=== PATIENT | male | born 1980 | race Two or more races ===

== ENCOUNTER 2024-06-19 09:06 | Inpatient (IN) | payer MEDICAID ==
[~2024-06-19] VITALS: Ht 160 cm; Wt 48.1 kg
[2024-06-19] MEDS: KETOROLAC TROMETHAMINE 15 MG/ML VIAL IV ONE (09:50)
[2024-06-19] MEDS ORDERED: KETOROLAC TROMETHAMINE 15 MG/ML VIAL ONE (09:50)
[2024-06-19] MEDS: IV NS 0.9% 1,000 ML BAG IV ONE (09:50)
[2024-06-19] MEDS: PIPERACILLIN /TAZOBACTAM 3.375 G in IV D5W 50 ML IV ONE (09:50)
[2024-06-19 10:05] LABS: CALCIUM, SERUM 8.9 mg/dL (8.5-10.1); POTASSIUM 3.2 mmol/L (3.5-5.1)
[2024-06-19 10:08] LABS: BASOPHILS % (AUTO) 0.3 % (0.0-2.0); EOSINOPHILS % (AUTO) 0.4 % (0.0-6.0); HEMATOCRIT 37 % (39-51); HEMOGLOBIN 12.6 g/dL (13.5-17.5); LYMPHOCYTES # (AUTO) 0.6 K/uL (0.8-4.8); LYMPHOCYTES % (AUTO) 9.5 % (20.0-44.0); MEAN CORPUSCULAR HEMOGLOBIN 29 PG (26.0-33.0); MEAN CORPUSCULAR HGB CONC 34 g/dl (31.0-36.0); MEAN CORPUSCULAR VOLUME 87 fL (80-96); MONOCYTES # (AUTO) 0.5 K/uL (0.1-1.30); MONOCYTES % (AUTO) 7.2 % (2.0-12.0); NEUTROPHILS # (AUTO) 5.4 K/uL (1.8-8.9); NEUTROPHILS % (AUTO) 82.6 % (43.0-81.0); PLATELET COUNT (AUTO) 254 K/uL (150-450); RED BLOOD CELL COUNT(AUTO) 4.29 MIL/uL (4.5-6.0); RED CELL DISTRIBUTION WIDTH 12.6 % (11.5-15.0); WHITE BLOOD COUNT (AUTO) 6.5 K/uL (4.3-11.0)
[2024-06-19 10:11] LABS: ALBUMIN 2.9 g/dL (3.4-5.0); BILIRUBIN,DIRECT 0.1 mg/dL (0.0-0.2); BILIRUBIN,TOTAL 0.3 mg/dL (0.2-1.0); TOTAL PROTEIN, SERUM 7.9 g/dL (6.4-8.2)
[2024-06-19] MEDS: VANCOMYCIN 1 GM in IV D5W 250 ML IV ONE (10:20)
[2024-06-19 10:32] LABS: INR 1.12 (0.91-1.10); PARTIAL THROMBOPLASTIN TIME 31.2 SEC (24.3-34.3); PROTHROMBIN TIME 11.8 SECS (9.2-11.1)
[2024-06-19] MEDS ORDERED: MAG HYDROX/AL HYDROX/SIMETH 30 ML UDC PO PRN (11:30)
[2024-06-19] MEDS ORDERED: Z GUARD REMEDY 4 OZ OINT TP PRN (11:30)
[2024-06-19] MEDS ORDERED: ONDANSETRON HCL/PF 4 MG/2 ML VIAL IVP PRN (11:30)
[2024-06-19] MEDS ORDERED: MAGNESIUM HYDROXIDE 30 ML UDC PO PRN (11:30)
[2024-06-19] MEDS ORDERED: PIPERACILLIN /TAZOBACTAM 3.375 G in IV D5W 50 ML IV SCH (13:00)
[2024-06-19] MEDS: PIPERACILLIN /TAZOBACTAM 3.375 G in IV D5W 100 ML IV SCH (14:52)
[2024-06-19] MEDS: ACETAMINOPHEN 325 MG TABLET PO PRN (15:11)
[2024-06-19 16:00] VITALS: BP 99/76; TEMP 98.6; O2SAT 98
[2024-06-19] MEDS: POTASSIUM CHLORIDE 20 MEQ POWDER PACKET PO ONE (18:34)
[2024-06-19] MEDS: HYDROCODONE/APAP 5/325MG TABLET PO PRN (19:32)
[2024-06-19 20:00] VITALS: BP 119/64; TEMP 99.2; O2SAT 98
[2024-06-19] MEDS: VANCOMYCIN 1 GM in IV D5W 250ml IV SCH (20:22)
[2024-06-20] VITALS: BP 117/72; TEMP 99; O2SAT 99
[2024-06-20 06:59] LABS: BASOPHILS % (AUTO) 0.2 % (0.0-2.0); EOSINOPHILS # (AUTO) 0.1 K/uL (0.0-0.7); HEMATOCRIT 34 % (39-51); HEMOGLOBIN 11.6 g/dL (13.5-17.5); LYMPHOCYTES # (AUTO) 0.9 K/uL (0.8-4.8); LYMPHOCYTES % (AUTO) 15.2 % (20.0-44.0); MEAN CORPUSCULAR HEMOGLOBIN 30 PG (26.0-33.0); MEAN CORPUSCULAR HGB CONC 34 g/dl (31.0-36.0); MEAN CORPUSCULAR VOLUME 88 fL (80-96); MONOCYTES # (AUTO) 0.6 K/uL (0.1-1.30); MONOCYTES % (AUTO) 10.6 % (2.0-12.0); NEUTROPHILS # (AUTO) 4.1 K/uL (1.8-8.9); PLATELET COUNT (AUTO) 257 K/uL (150-450); RED BLOOD CELL COUNT(AUTO) 3.91 MIL/uL (4.5-6.0); RED CELL DISTRIBUTION WIDTH 12.7 % (11.5-15.0); WHITE BLOOD COUNT (AUTO) 5.6 K/uL (4.3-11.0)
[2024-06-20 07:23] LABS: CALCIUM, SERUM 8.6 mg/dL (8.5-10.1); MAGNESIUM 2.2 mg/dL (1.8-2.4); PHOSPHORUS 3.6 mg/dL (2.5-4.9); POTASSIUM 3.9 mmol/L (3.5-5.1)
[2024-06-20 08:00] VITALS: BP 112/71; TEMP 98.6; O2SAT 99
[2024-06-20] MEDS ORDERED: IOHEXOL-300 100 ML VIAL IV ONE (12:35)
[2024-06-20] MEDS: IV NS 0.9% 1,000 ML IV SCH (13:06)
[2024-06-20 16:00] VITALS: BP 132/82; TEMP 98.2; O2SAT 98
[2024-06-21] VITALS: BP 116/77; TEMP 98.7; O2SAT 100
[2024-06-21 06:32] LABS: BASOPHILS % (AUTO) 0.1 % (0.0-2.0); EOSINOPHILS % (AUTO) 0.9 % (0.0-6.0); HEMATOCRIT 34 % (39-51); HEMOGLOBIN 11.1 g/dL (13.5-17.5); LYMPHOCYTES # (AUTO) 0.7 K/uL (0.8-4.8); LYMPHOCYTES % (AUTO) 15.7 % (20.0-44.0); MEAN CORPUSCULAR HEMOGLOBIN 29 PG (26.0-33.0); MEAN CORPUSCULAR HGB CONC 33 g/dl (31.0-36.0); MEAN CORPUSCULAR VOLUME 88 fL (80-96); MONOCYTES # (AUTO) 0.6 K/uL (0.1-1.30); MONOCYTES % (AUTO) 12.3 % (2.0-12.0); NEUTROPHILS # (AUTO) 3.3 K/uL (1.8-8.9); PLATELET COUNT (AUTO) 281 K/uL (150-450); RED BLOOD CELL COUNT(AUTO) 3.83 MIL/uL (4.5-6.0); RED CELL DISTRIBUTION WIDTH 12.5 % (11.5-15.0); WHITE BLOOD COUNT (AUTO) 4.6 K/uL (4.3-11.0)
[2024-06-21 07:28] LABS: CALCIUM, SERUM 8.6 mg/dL (8.5-10.1); CREATININE 0.9 mg/dL (0.6-1.3); POTASSIUM 3.7 mmol/L (3.5-5.1)
[2024-06-21 08:00] VITALS: BP 115/59; TEMP 97.3; O2SAT 100
[2024-06-21] MEDS: IV NS 0.9% 1,000 ML IV PRN (12:56)
[2024-06-21] MEDS: MORPHINE SULFATE INJ 2 MG/ML DISP.SYRIN IV ONE ×2 (14:38→15:16)
[2024-06-21] MEDS: LIDOCAINE 1%-EPI 1:100,000 20 ML VIAL TP ONE (15:16)
[2024-06-21 16:00] VITALS: BP 126/74; TEMP 97.3; O2SAT 100
[2024-06-21] MEDS: ARGININE/GLUTAMINE/CALCIUM BMB 1 EACH POWD.PACK PO SCH (17:10)
[2024-06-22 04:53] VITALS: BP 105/70; TEMP 98.4; O2SAT 100
[2024-06-22] MEDS: DAKINS QUARTER STRENGTH (0.125%) 480 ML BOTTLE TOP SCH (08:21)
[2024-06-22 08:53] VITALS: BP 118/77; TEMP 98.7; O2SAT 100
[2024-06-22 08:54] LABS: BASOPHILS % (AUTO) 0.2 % (0.0-2.0); EOSINOPHILS % (AUTO) 0.9 % (0.0-6.0); HEMATOCRIT 35 % (39-51); HEMOGLOBIN 11.5 g/dL (13.5-17.5); LYMPHOCYTES # (AUTO) 0.6 K/uL (0.8-4.8); LYMPHOCYTES % (AUTO) 16.7 % (20.0-44.0); MEAN CORPUSCULAR HEMOGLOBIN 29 PG (26.0-33.0); MEAN CORPUSCULAR HGB CONC 33 g/dl (31.0-36.0); MEAN CORPUSCULAR VOLUME 87 fL (80-96); MONOCYTES # (AUTO) 0.3 K/uL (0.1-1.30); MONOCYTES % (AUTO) 7.3 % (2.0-12.0); NEUTROPHILS # (AUTO) 2.6 K/uL (1.8-8.9); NEUTROPHILS % (AUTO) 74.9 % (43.0-81.0); PLATELET COUNT (AUTO) 317 K/uL (150-450); RED BLOOD CELL COUNT(AUTO) 4.02 MIL/uL (4.5-6.0); RED CELL DISTRIBUTION WIDTH 12.6 % (11.5-15.0); WHITE BLOOD COUNT (AUTO) 3.5 K/uL (4.3-11.0)
[2024-06-22 09:07] LABS: CALCIUM, SERUM 8.5 mg/dL (8.5-10.1); POTASSIUM 3.4 mmol/L (3.5-5.1)
[2024-06-22] MEDS ORDERED: CLIN300C12 PO (11:14)
[2024-06-22] MEDS ORDERED: HYDR-3972 PO (11:14)
[2024-06-22] MEDS: MORPHINE SULFATE INJ 2 MG/ML DISP.SYRIN IV PRN (11:39)
[2024-06-22 14:30] LABS: HIV-1 p24 ANTIGEN NON REACTIVE (NONREACTIVE); HIV-1/2 ANTIBODY REACTIVE (NONREACTIVE)
[2024-06-22] MEDS ORDERED: VANCOMYCIN HCL 1.25 GM in IV D5W 250 ML IV SCH (20:00)
== END 2024-06-22 16:12 | disposition home or self-care (01) | DRG 383 ==
LOC: ER 09:12 → MEDSG1 11:09
PROC: 0H9HXZZ Drainage of Right Upper Leg Skin, External Approach (ICD-10-PCS; principal; 2024-06-21)
DX: L03.115 Cellulitis of right lower limb (principal); D64.9 Anemia, unspecified; E87.6 Hypokalemia; F12.91 Cannabis use, unspecified, in remission; F17.200 Nicotine dependence, unspecified, uncomplicated; L02.415 Cutaneous abscess of right lower limb
CPT/HCPCS: 36415; 73701-TC; 80048-TC; 80076-TC; 80202-TC; 83690-TC; 83735-TC; 84100-TC; 85025-TC; 85730-TC; 86850-TC; 87040-TC; 87536; 87806; A4223; A6253; A6403; A6407; G0378; J1885; J2270; J2543; J3370; J3490; J7030; J7050; J7060; Q9967

== ENCOUNTER 2024-06-24 12:15 | Emergency (ER) | payer MEDICAID ==
[~2024-06-24] VITALS: Ht 160 cm; Wt 54.4 kg
[~2024-06-24 12:15] MED LIST: CLIN300C12 PO; HYDR-3972 PO
[2024-06-24] MEDS ORDERED: MORPHINE SULFATE INJ 2 MG/ML DISP.SYRIN ONE (13:29)
[2024-06-24] MEDS: MORPHINE SULFATE INJ 2 MG/ML DISP.SYRIN IM ONE (13:38)
[2024-06-24 14:54] VITALS: BP 122/76; TEMP 98.2; O2SAT 98
== END 2024-06-24 14:55 | disposition home or self-care (01) ==
LOC: ER 12:15
DX: Z48.817 Encounter for surgical aftercare following surgery on the skin and subcutaneous tissue (principal); Z98.890 Other specified postprocedural states
CPT/HCPCS: 99283; 96372; A6403; J2270